=== PATIENT | male | born 1990 | race African-American/Black ===

== ENCOUNTER 2017-08-16 14:48 | Emergency (ER) | payer OTHER ==
[~2017-08-16] VITALS: Ht 188 cm; Wt 81.7 kg
[~2017-08-16 14:48] MED LIST: CLEOCIN HCL300 MG PO; IBUPROFEN 600600 M1 PO; NAPROSYN500 MG PO; SYMBICORT160 MCG/4. INH
[2017-08-16] MEDS ORDERED: NAPROSYN500 MG PO (16:47)
== END 2017-08-16 17:06 | disposition home or self-care (01) ==
LOC: ER 14:48
DX: S86.811A Strain of other muscle(s) and tendon(s) at lower leg level, right leg, initial encounter (principal); J45.909 Unspecified asthma, uncomplicated; X50.1XXA Overexertion from prolonged static or awkward postures, initial encounter; Y93.89 Activity, other specified; Y92.89 Other specified places as the place of occurrence of the external cause; Y99.8 Other external cause status